=== PATIENT | female | born 1990 | race Caucasian/White ===

== ENCOUNTER 2017-12-10 11:55 | Emergency (ER) | payer BC ==
[~2017-12-10] VITALS: Ht 165.1 cm; Wt 102.1 kg
--- NOTE | 2017-12-10 12:09 | NUR ---
at bedside to see and examine patient.
[2017-12-10] MEDS ORDERED: IV NORMAL SALINE 1000 ML BAG IV ONE (12:15)
[2017-12-10] MEDS ORDERED: ONDANSETRON 4 MG/2 ML VIAL IV ONE (12:15)
[2017-12-10] MEDS ORDERED: ONDANSETRON 4 MG/2 ML VIAL ONE ×2 (12:26→13:25)
[2017-12-10 12:43] LABS: BASOPHILS # (AUTO) 0.1 K/uL (0.0-8.0); EOSINOPHILS # (AUTO) 0.1 K/uL (0.0-0.7); EOSINOPHILS % (AUTO) 0.7 % (0.0-7.0); HEMATOCRIT 37.7 % (31.2-41.9); HEMOGLOBIN 13.1 g/dL (10.9-14.3); LYMPHOCYTES # (AUTO) 3.9 K/uL (20.0-40.0); LYMPHOCYTES % (AUTO) 36.2 % (20.5-51.5); MEAN CORPUSCULAR HEMOGLOBIN 28.8 uug (24.7-32.8); MEAN CORPUSCULAR HGB CONC 35 g/dL (32.3-35.6); MEAN CORPUSCULAR VOLUME 82.9 fL (75.5-95.3); MONOCYTES # (AUTO) 0.6 K/uL (2.0-10.0); NEUTROPHILS # (AUTO) 6.1 K/uL (1.8-8.9); NEUTROPHILS % (AUTO) 56.1 % (38.5-71.5); PLATELET COUNT (AUTO) 350 K/uL (179-408); RED BLOOD CELL COUNT(AUTO) 4.55 MIL/uL (3.63-4.92); WHITE BLOOD COUNT (AUTO) 10.8 K/uL (3.8-11.8)
[2017-12-10 12:49] LABS: CREATININE 0.7 mg/dL (0.6-1.3); POTASSIUM 3.4 mmol/L (3.5-5.1)
[2017-12-10 12:55] LABS: BILIRUBIN,DIRECT 0.1 mg/dL (0.0-0.2); BILIRUBIN,TOTAL 0.4 mg/dL (0.2-1.0); TOTAL PROTEIN, SERUM 7.5 g/dL (6.4-8.2)
[2017-12-10 12:59] LABS: *BILIRUBIN,URIN 1+ (NEGATIVE); *BLOOD, URINE Trace-lysed (NEGATIVE); *CLARITY,URINE SLIGHTLY CLOUDY (CLEAR); *COLOR,URINE YELLOW (YELLOW); *KETONES,URINE NEGATIVE (NEGATIVE); *PROTEIN,URINE 2+ (NEGATIVE); *UROBILINOGEN,URINE 0.2 E.U./dl (NORMAL); LEUKOCYTE ESTERASE ,URINE NEGATIVE (NEGATIVE); NITRITE, URINE NEGATIVE (NEGATIVE); UGLUCOSE NEGATIVE (NEGATIVE)
[2017-12-10 13:01] LABS: BACTERIA,URINE FEW /HPF (NONE SEEN); RBC,URINE 0-3 /HPF (0-3); SQUAMOUS EPITHELIAL CELL,UR FEW /HPF (NONE SEEN); WBC,URINE 0-3 /HPF (0-3)
[2017-12-10 13:02] LABS: MUCUS,URINE MODERATE /LPF (0-FEW)
--- NOTE | 2017-12-10 13:13 | NUR ---
Call placed to Dr. Bush (PMD), message left for return call.
--- NOTE | 2017-12-10 13:18 | NUR ---
TANESHA speaking with Dr. Bush
[2017-12-10] MEDS ORDERED: FAMOTIDINE. 20 MG/2 ML VIAL IV ONE (13:30)
[2017-12-10] MEDS ORDERED: ONDANSETRON IV *ER 4 MG/2 ML VIAL IV ONE (13:30)
--- NOTE | 2017-12-10 13:39 | NUR ---
2nd dose of zofran given as ordered pt. IV dcd at this time due to infiltration.
[2017-12-10] MEDS ORDERED: FAMOTIDINE 20 MG TABLET PO ONE (13:45)
[2017-12-10] MEDS ORDERED: FAMOTIDINE 20 MG TABLET ONE (13:54)
--- NOTE | 2017-12-10 14:04 | NUR ---
DCD instructions and prescription given to pt, who verbalized understanding. pt. Left with nausea well controlled, no vomiting.
--- NOTE | 2017-12-10 14:15 | NUR ---
Patient discharged to home in stable conditon. Written and verbal after care instructions given. Patient verbalizes understanding of instructions.
== END 2017-12-10 14:18 | disposition home or self-care (01) ==
LOC: ER 11:55
DX: R11.2 Nausea with vomiting, unspecified (principal); J45.909 Unspecified asthma, uncomplicated; Z88.5 Allergy status to narcotic agent; Z88.8 Allergy status to other drugs, medicaments and biological substances
CPT/HCPCS: 36415; 80048; 80076; 81001; 83605; 83690; 84443; 84703; 85025; 96361; 96374; 96376; 99285; A4663; J2405 ×2

== ENCOUNTER 2018-03-02 06:07 | Emergency (ER) | payer BC ==
[~2018-03-02] VITALS: Ht 162.6 cm; Wt 99.8 kg
[2018-03-02] MEDS ORDERED: IPRATROPIUM BROMIDE 0.5 MG/2.5 ML NEBU ONE ×3 (06:25→08:17)
[2018-03-02] MEDS ORDERED: ALBUTEROL SULFATE 2.5 MG/3 ML NEBU ONE (06:25)
--- NOTE | 2018-03-02 06:27 | NUR ---
RECEIVED PATIENT WITH C/O CHEST PAIN, BACK PAIN, COUGH AND WHEEZING. PATIENT WITH X OF ASTHMA, STARTED WITH COUGH AND WEEZING X 2 DAYS, WAS SEEN AT [facility]RGENT [facility]ARE YESTERDAY AND GIVEN MEDS BUT UNABLE TO SLEEP ALL NIGHT DUE TO COUGH, WHEEZING AND SOB. LUNGS WITH AUDIBLE WHEEZING, COUGH CONSISTENTLY, BACK AND CHEST PAIN FROM COUGHING. LUNGS WITH DIMINISHED BREATH SOUNDS, RESPIRATORY THERAPY NOTIFIED, PATIENT WAITING FOR TREATMENT.
[2018-03-02] MEDS ORDERED: IPRATROPIUM BROMIDE 0.5 MG/2.5 ML NEBU NEB ONE ×2 (06:30→07:45)
[2018-03-02] MEDS ORDERED: ALBUTEROL SULFATE 2.5 MG/3 ML NEBU NEB ONE ×2 (06:30→07:45)
--- NOTE | 2018-03-02 07:10 | NUR ---
RESPIRATORY THERAPY COMPLETED, PATIENT STILL WITH WHEEZING, ER DR AT BEDSIDE. REPORT GIVEN TO ONCOMING RN.
--- NOTE | 2018-03-02 07:15 | NUR ---
pt. received in bed resting. Treated by RT as ordered.
[2018-03-02] MEDS ORDERED: ALBUTEROL SULFATE 2.5 MG/ 0.5 ML NEBU ONE (07:41)
[2018-03-02] MEDS ORDERED: DEXAMETHASONE SOD PHOSPHATE 4 MG INJ IV ONE (07:45)
[2018-03-02] MEDS ORDERED: DEXAMETHASONE SOD PHOSPHATE 10 MG INJ ONE (08:26)
[2018-03-02 08:28] LABS: BASOPHILS # (AUTO) 0.1 K/uL (0.0-8.0); BASOPHILS % (AUTO) 0.5 % (0.0-2.0); EOSINOPHILS % (AUTO) 0.1 % (0.0-7.0); HEMATOCRIT 37.3 % (31.2-41.9); HEMOGLOBIN 12.7 g/dL (10.9-14.3); LYMPHOCYTES # (AUTO) 4.4 K/uL (20.0-40.0); LYMPHOCYTES % (AUTO) 33.9 % (20.5-51.5); MEAN CORPUSCULAR HEMOGLOBIN 29.1 uug (24.7-32.8); MEAN CORPUSCULAR HGB CONC 34 g/dL (32.3-35.6); MEAN CORPUSCULAR VOLUME 85.2 fL (75.5-95.3); MONOCYTES # (AUTO) 0.8 K/uL (2.0-10.0); MONOCYTES % (AUTO) 6.3 % (0.0-11.0); NEUTROPHILS # (AUTO) 7.7 K/uL (1.8-8.9); NEUTROPHILS % (AUTO) 59.2 % (38.5-71.5); PLATELET COUNT (AUTO) 352 K/uL (179-408); RED BLOOD CELL COUNT(AUTO) 4.37 MIL/uL (3.63-4.92); WHITE BLOOD COUNT (AUTO) 12.9 K/uL (3.8-11.8)
[2018-03-02 08:35] LABS: CREATININE 0.7 mg/dL (0.6-1.3)
[2018-03-02 08:48] LABS: BILIRUBIN,DIRECT 0.1 mg/dL (0.0-0.2); BILIRUBIN,TOTAL 0.3 mg/dL (0.2-1.0); TOTAL PROTEIN, SERUM 7.3 g/dL (6.4-8.2)
--- NOTE | 2018-03-02 10:00 | NUR ---
DCD instructions given to pt. who verbalized understanding. pt. left unit ambulatory, [id number]. no c/of pain.
== END 2018-03-02 10:00 | disposition home or self-care (01) ==
LOC: ER 06:08
DX: J45.909 Unspecified asthma, uncomplicated (principal); R11.2 Nausea with vomiting, unspecified; Z88.5 Allergy status to narcotic agent; Z88.8 Allergy status to other drugs, medicaments and biological substances; Z87.891 Personal history of nicotine dependence
CPT/HCPCS: 36415; 71045; 80048; 80076; 83880; 84484; 84702; 85025; 85379; 94640; 94644; 96374; 99285; J1100; 70030-TC; A4663; J3590